=== PATIENT | male | born 1940 | race African-American/Black ===

== ENCOUNTER 2016-05-27 00:47 | Inpatient (IN) | payer OTHER, MEDICARE ==
[2016-05-27] VITALS (7 sets, daily range): BP systolic 122–142; BP diastolic 53–81
[~2016-05-27] VITALS: Ht 177.8 cm; Wt 91.2 kg
--- NOTE | ~2016-05-27 | EKG ---
[address] [address] ELECTROCARDIOGRAM REPORT Name: FILEMON BENITEZ Room #: 459-P ADM IN M.R.#: [id number] Admission: 05/27/16 Attend Phys: Malcolm Tom MD Discharge: Date of : 44 Report #: [id number] THIS REPORT FOR: //name// [facility] ED Test Date: 2016-05-27 Test Time: 01:06:55 Pat Name: FILEMON BENITEZ Department: Room: [facility] Gender: M Continuous Process [employer] Tanner: ANITA : 1940 Requested By: Carlos Mccartney Order Number: [id number] MD: Adolfo Augustine Measurements Intervals [place] Rate: 83 P: IA: QRS: 23 QRSD: 100 T: QT: 348 QTc: 409 Interpretive Statements Atrial fibrillation Abnormal T, consider ischemia, lateral leads Compared to ECG 02/19/2016 07:59:57 T-wave abnormality now present Early repolarization no longer present Prolonged QT interval no longer present Possible ischemia still present Electronically Signed On 05-27-2016 8:06:40 EMERGENCY ROOM CLINICIAN by Adolfo Augustine [email or web address] <ELECTRONICALLY SIGNED> By: Adolfo Augustine MD 05/27/16 0806 5 5 Adolfo Augustine MD /EPI
--- NOTE | ~2016-05-27 | H ---
[facility] [place] [address] HISTORY AND PHYSICAL Name: FILEMON BENITEZ Room #: 459-P ADM IN M.R.#: [id number] Admission: 05/27/16 Attend Phys: Malcolm Tom MD Discharge: Date of : 44 Report #: [id number] THIS REPORT FOR: //name// CC: Malcolm Tom DATE OF SERVICE: 05/27/2016 CHIEF COMPLAINT: Weakness. HISTORY OF PRESENT ILLNESS: The patient is a 76-year-old -Swiss male well known to me with underlying gallbladder carcinoma who has recently been followed by Dr. Velazquez at , who has been getting progressively weaker. He has apparently failed his chemotherapy. He has been unable to get himself up out of bed and had to call EMS to get him out of the bed. PAST MEDICAL HISTORY: Significant for gallbladder cancer, recent surgery, episode of sepsis related to his removal of stones from the gallbladder, AFib, diabetes mellitus type 2, hypertension, degenerative joint disease, coronary artery disease, status post bypass grafting, degenerative arthritis of the knee, the laparoscopic cholecystectomy was in 2015, ERCP with sphincterotomy was in August 2015 with subsequent sepsis, TX after the sepsis, anemia requiring transfusion in December 2015, GI bleeding after anticoagulation for his AFib. MEDICATIONS: Zofran p.r.n., Lasix 40 mg a day, potassium 20 mEq a day, metformin XR 500 mg a day, Coreg 3.125 mg b.i.d., aspirin 81 mg a day, isosorbide mononitrate 120 mg a day, Tylenol p.r.n., Colace p.r.n. ALLERGIES: No known drug allergies. SOCIAL HISTORY: He is a nonsmoker. He does drink alcohol in the past. No recreational drugs. He is . REVIEW OF SYSTEMS: CONSTITUTIONAL: Positive for generalized weakness and malaise. No fevers or chills. HEENT: No headaches or visual changes. CHEST: No chest pain, tightness in chest, short of breath, cough or sputum production. GASTROINTESTINAL: He has some mild nausea, no abdominal pain, no vomiting, no diarrhea. GENITOURINARY: No burning or frequency. EXTREMITIES: He has generalized joint pains and generalized weakness. NEUROLOGIC: No new numbness or weakness. VITAL SIGNS: Blood pressure 126/71, his pulse was 92, his respiratory rate is 20. He is afebrile. GENERAL: He is awake and alert, in no acute distress, speech generally feels [facility] [address] [place] [address] HISTORY AND PHYSICAL Name: FILEMON BENITEZ Room #: 459-P [facility] IN [facility].#: [id number] Admission: 05/27/16 Attend Phys: Malcolm Tom MD Discharge: Date of : 44 Report #: [id number]. His mucous membranes are dry. NECK: Supple, without adenopathy, thyromegaly or bruits. CHEST: Clear to auscultation. CARDIOVASCULAR: Irregular rhythm with a rate in the 80s. ABDOMEN: Soft, no masses. Bowel sounds are active. No focal tenderness. EXTREMITIES: Showed no edema. Pulses are intact. I did not walk him at this point. His general strength is equal. LABORATORY DATA: EKG showed AFib with s rate of 83, no ST segment changes. His ammonia level was less than 10. His CPK-MB is less than 0.5. Urinalysis, specific gravity of 1.015, 2+ white cells, greater than 30 bacteria. Sodium 140, potassium 6.1, chloride 112, bicarbonate 21, BUN 41, creatinine 2.4, glucose 88, magnesium 1.8, AST 29, ALT 12, alkaline phosphatase 111, troponin 0.4, albumin 1.8. INR 1.2. D-dimer 4.18. WBC is 15.6, hemoglobin 8.5, hematocrit 26.1, platelet count 273, 77 segs, 14 lymphs. Chest x-ray shows some vascular congestion, but no infiltrate. CT head shows no masses or hemorrhages. Duplex Doppler of the left calf shows a small segment of clot in the left peroneal vein. ASSESSMENT: 1. Acute kidney injury with dehydration with underlying chronic kidney disease. 2. Generalized weakness. 3. Hyperkalemia. 4. Anemia, chronic, due to cancer. 5. Deep venous thrombosis, left leg. 6. Elevated troponin with underlying coronary artery disease. 7. Leukocytosis. 8. Urinary tract infection. PLAN: We will admit, start on Lovenox for the DVT, IV fluids for the WILBER. Kayexalate was given for the hyperkalemia. We will consult Renal. We will monitor the troponins. I think this is most likely related to the underlying illness, not an acute TX. He has no chest symptoms; however, we are giving Lovenox for the DVT, which should help as well with any coronary artery disease with prior the GI bleed. I am going to watch closely for bleeding. We will monitor the hemoglobin daily, monitor the potassium. We will hold any oral potassium and will hold his Lasix in light of the WILBER at this time. For the UTI, we will pick Rocephin 1 mg daily. <ELECTRONICALLY SIGNED> By: Malcolm Tom MD 05/29/16 1250 [id number] Malcolm Tom MD /nt
[~2016-05-27 00:47] MED LIST: AMLODIPINE BESYL5 MG PO; ASPIRIN EC81 M1 PO; AUGMENTIN 875-1 EACH PO; BACLOFEN 10MG T10 MG PO; BENICAR20 MG PO; BENICAR40 MG PO; CARVEDILOL3.125 MG PO; COLACE100 MG PO; DUONEB 2.5-0.5 M3 ML INH; FERREX 150 PLU1 EAC1 PO; FUROSEMIDE 40 M40 M1 PO; GLUCOPHAGE XR500 MG PO; HYDROCODONE-AP1 EA11 PO; HYDROCODONE-AP1 EAC6 PO; HYDROCODONE-APA1 TA1 PO; IMDUR120 MG PO; ISOSORBIDE MON120 MG PO; K-DUR 20 MEQ T20 MEQ PO; KEFLEX500 MG PO; KLOR-CON 1010 MEQ PO; LASIX 40 MG TAB40 M2 PO; LIPITOR40 MG PO; NIASPAN 500 MG500 M1 PO; ONDANSETRON HCL8 M2 PO; PANTOPRAZOLE SO40 M1 PO; PLAVIX 75 MG TA75 MG PO; PREDNISONE 10 M10 MG PO; PREVACID 24HR15 MG PO; PREVACID 30MG C30 M1 OR; PREVACID15 MG PO; TOPROL XL100 MG PO; TOPROL XL25 MG PO; TOPROL XL50 MG PO; TYLENOL EXTRA500 MG PO; XARELTO10 MG PO; XARELTO15 MG PO; XARELTO20 MG PO
[2016-05-27 02:54] LABS: HEMATOCRIT 26.1 % (42.0-52.0); HEMOGLOBIN 8.5 gm/dL (14.0-18.0); MANUAL DIFF YES; MCH 30.3 pg (26.0-34.0); MCHC 32.5 % (28.0-37.0); MCV 93.2 fL (80.0-100.0); PLATELET COUNT 273 thou/uL (150-400); RDW 15.9 % (10.5-14.5); WBC 15.6 thou/uL (4.0-11.0)
[2016-05-27 03:01] LABS: URINE BILIRUBIN NEGATIVE (Negative); URINE BLOOD TRACE (Negative); URINE COLOR YELLOW; URINE GLUCOSE-RANDOM* NEGATIVE (Negative); URINE KETONES NEGATIVE (Negative); URINE NITRITE NEGATIVE (Negative); URINE PROTEIN (DIPSTICK) NEGATIVE (Negative); URINE SPECIFIC GRAVITY 1.015 (1.003-1.035); URINE UROBILINOGEN 0.2 E.U./dl (0.2-1.0)
[2016-05-27 03:05] LABS: ALBUMIN 1.8 g/dL (3.4-5.0); CALCIUM 8.7 mg/dL (8.5-10.1); CREATININE 2.4 mg/dL (0.6-1.3); MAGNESIUM 1.8 mg/dL (1.8-2.4); TOTAL BILIRUBIN 0.2 mg/dL (<0.1-1.0); TOTAL PROTEIN 7.3 g/dL (6.4-8.2)
[2016-05-27 03:08] LABS: POTASSIUM 6.1 mmol/L (3.5-5.1)
[2016-05-27 03:10] LABS: TROPONIN-I 0.4 ng/mL (<0.04-0.07)
[2016-05-27 03:11] LABS: APTT 26.6 Seconds (24.5-32.8); INR 1.2; PROTIME 12.9 Seconds (9.3-11.4)
[2016-05-27 03:52] LABS: ANISOCYTOSIS SLIGHT; MACROCYTES SLIGHT; TOTAL CELL COUNT 100
[2016-05-27 04:02] LABS: BACTERIA >30 Many /HPF (None Seen); CASTS None Seen /LPF (None Seen); CRYSTALS None Seen /LPF (None Seen); SQUAMOUS 0-3 Few /LPF (0-3); URINE RBC None Seen /HPF (0-2)
[2016-05-28 03:26] VITALS: BP 157/71
[2016-05-28 06:59] LABS: HEMATOCRIT 26.8 % (42.0-52.0); HEMOGLOBIN 8.6 gm/dL (14.0-18.0); MCH 30.2 pg (26.0-34.0); MCHC 31.9 % (28.0-37.0); MCV 94.6 fL (80.0-100.0); RBC 2.83 mil/uL (4.50-6.00); RDW 15.8 % (10.5-14.5); WBC 16.8 thou/uL (4.0-11.0)
[2016-05-28 07:17] LABS: CALCIUM 8.6 mg/dL (8.5-10.1); CREATININE 1.7 mg/dL (0.6-1.3); POTASSIUM 4.5 mmol/L (3.5-5.1)
[2016-05-28 08:00] VITALS: BP 132/66
[2016-05-28 12:03] VITALS: BP 129/51
[2016-05-28 16:35] VITALS: BP 121/61
[2016-05-28 19:54] VITALS: BP 122/54
[2016-05-29 04:48] VITALS: BP 144/81
[2016-05-29 08:00] VITALS: BP 138/61
[2016-05-29 12:00] VITALS: BP 113/55
[2016-05-29 16:00] VITALS: BP 126/69
[2016-05-29 20:10] VITALS: BP 142/65
[2016-05-30 04:27] VITALS: BP 120/58
[2016-05-30 05:49] LABS: CALCIUM 7.9 mg/dL (8.5-10.1); CREATININE 1.4 mg/dL (0.6-1.3); POTASSIUM 4.2 mmol/L (3.5-5.1)
[2016-05-30 07:20] VITALS: BP 135/77
[2016-05-30 11:20] VITALS: BP 121/58
[2016-05-30 15:30] VITALS: BP 113/59
[2016-05-30 20:34] VITALS: BP 143/64
[2016-05-31 04:44] VITALS: BP 146/64
[2016-05-31 08:00] VITALS: BP 136/68
[2016-05-31 15:51] VITALS: BP 119/65
[2016-05-31 16:58] LABS: CREATININE 1.4 mg/dL (0.6-1.3); POTASSIUM 4.4 mmol/L (3.5-5.1)
[2016-05-31 19:48] VITALS: BP 133/62
[2016-06-01 04:40] VITALS: BP 125/61
[2016-06-01 08:00] VITALS: BP 123/58
[2016-06-01 12:00] VITALS: BP 109/52
[2016-06-01 14:10] LABS: HEMOGLOBIN 8.4 gm/dL (14.0-18.0); MCH 30.1 pg (26.0-34.0); MCHC 32.3 % (28.0-37.0); MCV 93.2 fL (80.0-100.0); RBC 2.79 mil/uL (4.50-6.00); RDW 16.1 % (10.5-14.5); WBC 16.8 thou/uL (4.0-11.0)
[2016-06-01 16:00] VITALS: BP 116/66
[2016-06-01 20:11] VITALS: BP 140/66
[2016-06-02 03:45] VITALS: BP 132/74
[2016-06-02 07:37] VITALS: BP 134/74
[2016-06-02 11:34] VITALS: BP 111/67
[2016-06-02] MEDS ORDERED: LASIX 40 MG TAB40 M1 PO (12:41)
[2016-06-02] MEDS ORDERED: ENOXAPARIN60 MG/0.1 SUBQ (12:42)
== END 2016-06-02 15:06 | DRG 871 ==
LOC: ER 00:47 → EROBS 03:55 → 4W 03:55
PROVIDERS: Emergency Medicine; Family Medicine
DX: A41.9 Sepsis, unspecified organism (principal); J18.9 Pneumonia, unspecified organism; I82.4Z2 Acute embolism and thrombosis of unspecified deep veins of left distal lower extremity; N39.0 Urinary tract infection, site not specified; N17.9 Acute kidney failure, unspecified; E86.0 Dehydration; I25.10 Atherosclerotic heart disease of native coronary artery without angina pectoris; N18.9 Chronic kidney disease, unspecified; I12.9 Hypertensive chronic kidney disease with stage 1 through stage 4 chronic kidney disease, or unspecified chronic kidney disease; E87.5 Hyperkalemia; I48.91 Unspecified atrial fibrillation; M17.11 Unilateral primary osteoarthritis, right knee; Z90.49 Acquired absence of other specified parts of digestive tract; I25.2 Old myocardial infarction; Z86.73 Personal history of transient ischemic attack (TIA), and cerebral infarction without residual deficits; Z85.07 Personal history of malignant neoplasm of pancreas; Z79.899 Other long term (current) drug therapy; Z79.82 Long term (current) use of aspirin; Z95.1 Presence of aortocoronary bypass graft; Z85.00 Personal history of malignant neoplasm of unspecified digestive organ; Z79.2 Long term (current) use of antibiotics; D63.0 Anemia in neoplastic disease; E11.22 Type 2 diabetes mellitus with diabetic chronic kidney disease
CPT/HCPCS: 10045

== ENCOUNTER → 2016-07-27 | Outpatient (CLI) | payer OTHER, MEDICARE ==
[~2016-07-27] MED LIST changes: +ENOXAPARIN60 MG/0.1 SUBQ; +LASIX 40 MG TAB40 M1 PO
== END ==
LOC: SPEECH 02:15 → RAD 02:15
DX: R13.12 Dysphagia, oropharyngeal phase (principal)